=== PATIENT | female | born 1980 | race Caucasian/White ===

== ENCOUNTER 2018-08-18 19:16 | Emergency (ER) | payer OTHER ==
[~2018-08-18] VITALS: Ht 152.4 cm; Wt 68.0 kg
[~2018-08-18 19:16] MED LIST: BROMFED DM COU118 ML PO; FLOVENT HFA12 G1 INH; OMEPRAZOLE40 MG PO; PROAIR HFA INH8.5 GM INH; ZYRTEC10 M3 PO
== END 2018-08-18 21:30 | disposition home or self-care (01) ==
LOC: FSED 19:16
DX: R50.9 Fever, unspecified (principal); R05 Cough; J11.1 Influenza due to unidentified influenza virus with other respiratory manifestations
CPT/HCPCS: 87400; 99282

== ENCOUNTER 2019-10-01 09:10 | Emergency (ER) | payer OTHER ==
[~2019-10-01] VITALS: Ht 152.4 cm; Wt 59.0 kg
--- OUTSIDE RECORDS SUMMARY | 2019-10-01 09:13 | XMS REPORT ---
Author Author [facility] Address Unknown Phone Unavailable Care Team Providers Care Animal Shelter Clerk Name Role Phone Unavailable Unavailable Payers Payer Name Policy Type Policy Number Effective Date Expiration Date Problems This patient has no known problems. Allergies, Adverse Reactions, Alerts Allergy Name Allergy Type Status Severity Reaction(s) Onset Date Inactive Date Treating Clinician Comments Sulfa (Sulfonamide Antibiotics) DA Active U 2015-09-23 00:00:00 Medications This patient has no known medications. Results Test Description Test Time Test Comments Text Results Atomic Results Result Comments - CT ABD PELVIS W/CONT 2019-06-15 10:48:00 Name: RANI VALIENTE [facility] : 1980 Age/S: 39 / F [address] [facility] Unit #: [id number] Loc: [place] [address] Phys: Jann Esparza DO Acct: [id number] Dis Date: Status: REG ER PHONE #: [phone] Exam Date: 06/15/2019 1015 FAX #: [phone] Reason: RUQ pain post op EXAMS: CPT CODE: [id number] CT ABD PELVIS W/CONT 63984 REASON FOR EXAM: RUQ pain post op EXAM ORDER DATE: 06/15/2019 8:55 AM Ordering Summer: Jann Esparza DO PROCEDURE: - CT ABD PELVIS W/CONT contrast-enhanced axial CT images were acquired through the abdomen/pelvis at 5 mm intervals. Sagittal and coronal reformatted images were generated. Automated exposure control was utilized for this reduction. Phases of contrast: venous and delayed COMPARISON: None FINDINGS: Visualized thorax: Normal Hepatobiliary system: Prior cholecystectomy. Hepatic steatosis. Mild dilation of the common bile duct may be a physiologic response to the patient's prior cholecystectomy Pancreas: Normal Spleen: Normal Adrenal glands: Normal Genitourinary system: Corpus luteal cyst in the left ovary. Otherwise normal Gastrointestinal tract and appendix: Normal Abdominal vascular structures: Normal Peritoneum and retroperitoneum: No free fluid or free air. No omental or mesenteric masses. No abnormal lymph nodes. Musculoskeletal structures and abdominal wall: Normal IMPRESSION: There is been a prior cholecystectomy but there are no fluid collections or inflammatory changes in the surgical bed. Mild dilation of the common bile duct up to 6 mm likely represents a PAGE 1 Signed Report (CONTINUED) Name: RANI VALIENTE [facility] : 1980 Age/S: 39 / F [address] [facility] Unit #: [id number] Loc: [place] [address] Phys: Jann Esparza DO Acct: [id number] Dis Date: Status: REG ER PHONE #: [phone] Exam Date: 06/15/2019 1015 FAX #: [phone] Reason: RUQ pain post op EXAMS: CPT CODE: [id number] CT ABD PELVIS W/CONT 23299 <Continued> physiologic response to the patient's cholecystectomy. Hepatic steatosis. Corpus luteal cyst in the left ovary. at 1048 Reported and signed by: Sincere Soliz MD CC: Dr. Amauri Hampton; Jann Esparza DO Technologist:RT Racquel(R),CT CTDI: DLP: Trnscb Date/Time: 06/15/2019 (1048) [email or web address] Orig Print D/T: S: 06/15/2019 (1059) PAGE 2 Signed Report BASIC METABOLIC PANEL 2019-06-15 09:51:00 SODIUM (test code=NA) 141 mmol/L 136-145 POTASSIUM (test code=K) 3.8 mmol/L 3.5-5.1 CHLORIDE (test code=CL) 107.0 mmol/L 98-107 CARBON DIOXIDE (test code=CO2) 26.0 mmol/L 21-32 ANION GAP (test code=GAP) 11.8 10-20 GLUCOSE (test code=GLU) 96 mg/dL 74-106 BLOOD UREA NITROGEN (test code=BUN) 13 mg/dL 7-18 GLOMERULAR FILTRATION RATE (test code=GFR) > 60 mL/min >=60 Estimated GFR by using Modified MDRD formula.Chronic kidney disease is defined as either kidney damageor GFR <60 mL/min/1.73 m2 for >3 months. CREATININE (test code=CREAT) 0.90 mg/dL 0.55-1.02 Note change in reference range due to change in reagent. BUN/CREATININE RATIO (test code=BUN/CREA) 14.9 10-20 CALCIUM (test code=CA) 9.1 mg/dL 8.5-10.1 HEPATIC FUNCTION [id number] 09:51:00* Test Item Value Reference Range Comments TOTAL PROTEIN (test code=PROT) 7.8 gram/dL 6.4-8.2 ALBUMIN (test code=ALB) 4.0 g/dL 3.4-5.0 GLOBULIN (test code=GLOB) 3.8 gram/dL 2.7-4.2 ALBUMIN/GLOBULIN RATIO (test code=A/G) 1.1 0.75-1.50 BILIRUBIN TOTAL (test code=BILT) 0.20 mg/dL 0.0-1.0 BILIRUBIN DIRECT (test code=BILD) 0.05 mg/dL 0.0-0.20 SGOT/AST (test code=AST) 13 IUnit/L 15-37 SGPT/ALT (test code=ALT) 21 IUnit/L 12-78 ALKALINE PHOSPHATASE TOTAL (test code=ALKP) 61 IUnit/L 45-117 Note change in reference range due to change in reagent. [id number] 09:51:00* Test Item Value Reference Range Comments LIPASE (test code=LIP) 135 U/L 73.0-393.0 HCG SERUM [id number] 09:51:00* Test Item Value Reference Range Comments HCG SERUM QUAL (test code=HCGQL) NEGATIVE NEGATIVE This HCGQL test is NOT applicable for MALE patients.Check with nurse about probable order error.If Tumor Marker Test needed, nurse should order test "HCGTU"(Test #550.06285) BASIC METABOLIC [id number] 09:37:00* Test Item Value Reference Range Comments SODIUM (test code=NA) 141 mmol/L 136-145 POTASSIUM (test code=K) 3.8 mmol/L 3.5-5.1 CHLORIDE (test code=CL) 107.0 mmol/L 98-107 CARBON DIOXIDE (test code=CO2) mmol/L 21-32 ANION GAP (test code=GAP) 10-20 GLUCOSE (test code=GLU) mg/dL 74-106 BLOOD UREA NITROGEN (test code=BUN) mg/dL 7-18 GLOMERULAR FILTRATION RATE (test code=GFR) mL/min >=60 CREATININE (test code=CREAT) mg/dL 0.55-1.02 BUN/CREATININE RATIO (test code=BUN/CREA) 10-20 CALCIUM (test code=CA) mg/dL 8.5-10.1 HEPATIC FUNCTION [id number] 09:37:00* Test Item Value Reference Range Comments TOTAL PROTEIN (test code=PROT) gram/dL 6.4-8.2 ALBUMIN (test code=ALB) g/dL 3.4-5.0 GLOBULIN (test code=GLOB) gram/dL 2.7-4.2 ALBUMIN/GLOBULIN RATIO (test code=A/G) 0.75-1.50 BILIRUBIN TOTAL (test code=BILT) mg/dL 0.0-1.0 BILIRUBIN DIRECT (test code=BILD) mg/dL 0.0-0.20 SGOT/AST (test code=AST) IUnit/L 15-37 SGPT/ALT (test code=ALT) IUnit/L 12-78 ALKALINE PHOSPHATASE TOTAL (test code=ALKP) IUnit/L 45-117 [id number] 09:37:00* Test Item Value Reference Range Comments LIPASE (test code=LIP) U/L 73.0-393.0 HCG SERUM [id number] 09:37:00* Test Item Value Reference Range Comments HCG SERUM QUAL (test code=HCGQL) NEGATIVE NEGATIVE This HCGQL test is NOT applicable for MALE patients.Check with nurse about probable order error.If Tumor Marker Test needed, nurse should order test "HCGTU"(Test #550.99531) CBC W/O [id number] 09:32:00* Test Item Value Reference Range Comments WHITE BLOOD CELL (test code=WBC) 7.7 K/mm3 4.5-12.5 RED BLOOD CELL (test code=RBC) 4.47 mill/mm3 3.7-5.2 HEMOGLOBIN (test code=HGB) 13.2 gram/dL 11.5-15.5 HEMATOCRIT (test code=HCT) 40.7 % 36.0-46.0 MEAN CELL VOLUME (test code=MCV) 91.1 fL 80-98 MEAN CELL HGB (test code=MCH) 29.5 picogram 27.0-33.0 MEAN CELL HGB CONCETRATION (test code=MCHC) 32.4 gram/dL 33.0-36.0 RED CELL DISTRIBUTION WIDTH (test code=RDW) 14.9 % 11.6-16.2 PLATELET COUNT (test code=PLT) 351 K/mm3 150-450 MEAN PLATELET VOLUME (test code=MPV) 10.2 fL 6.7-11.0 BASIC METABOLIC [id number] 09:32:00* Test Item Value Reference Range Comments SODIUM (test code=NA) 141 mmol/L 136-145 POTASSIUM (test code=K) 3.8 mmol/L 3.5-5.1 CHLORIDE (test code=CL) 107.0 mmol/L 98-107 CARBON DIOXIDE (test code=CO2) mmol/L 21-32 ANION GAP (test code=GAP) 10-20 GLUCOSE (test code=GLU) mg/dL 74-106 BLOOD UREA NITROGEN (test code=BUN) mg/dL 7-18 GLOMERULAR FILTRATION RATE (test code=GFR) mL/min >=60 CREATININE (test code=CREAT) mg/dL 0.55-1.02 BUN/CREATININE RATIO (test code=BUN/CREA) 10-20 CALCIUM (test code=CA) mg/dL 8.5-10.1 HEPATIC FUNCTION [id number] 09:32:00* Test Item Value Reference Range Comments TOTAL PROTEIN (test code=PROT) gram/dL 6.4-8.2 ALBUMIN (test code=ALB) g/dL 3.4-5.0 GLOBULIN (test code=GLOB) gram/dL 2.7-4.2 ALBUMIN/GLOBULIN RATIO (test code=A/G) 0.75-1.50 BILIRUBIN TOTAL (test code=BILT) mg/dL 0.0-1.0 BILIRUBIN DIRECT (test code=BILD) mg/dL 0.0-0.20 SGOT/AST (test code=AST) IUnit/L 15-37 SGPT/ALT (test code=ALT) IUnit/L 12-78 ALKALINE PHOSPHATASE TOTAL (test code=ALKP) IUnit/L 45-117 [id number] 09:32:00* Test Item Value Reference Range Comments LIPASE (test code=LIP) U/L 73.0-393.0 HCG SERUM [id number] 09:32:00* Test Item Value Reference Range Comments HCG SERUM QUAL (test code=HCGQL) NEGATIVE CBC W/O [id number] 09:30:00* Test Item Value Reference Range Comments WHITE BLOOD CELL (test code=WBC) K/mm3 4.5-12.5 RED BLOOD CELL (test code=RBC) mill/mm3 3.7-5.2 HEMOGLOBIN (test code=HGB) 13.2 gram/dL 11.5-15.5 HEMATOCRIT (test code=HCT) 40.7 % 36.0-46.0 MEAN CELL VOLUME (test code=MCV) fL 80-98 MEAN CELL HGB (test code=MCH) picogram 27.0-33.0 MEAN CELL HGB CONCETRATION (test code=MCHC) gram/dL 33.0-36.0 RED CELL DISTRIBUTION WIDTH (test code=RDW) % 11.6-16.2 PLATELET COUNT (test code=PLT) K/mm3 150-450 MEAN PLATELET VOLUME (test code=MPV) fL 6.7-11.0 URINALYSIS [id number] 09:26:00* Test Item Value Reference Range Comments UA COLOR (test code=COLU) Light-Yellow YELLOW UA APPEARANCE (test code=APPU) CLEAR CLEAR UA GLUCOSE DIPSTICK (test code=DGLUU) NEGATIVE mg/dL NEGATIVE UA BILIRUBIN DIPSTICK (test code=BILU) NEGATIVE mg/dL NEGATIVE UA KETONE DIPSTICK (test code=KETU) NEGATIVE mg/dL NEGATIVE UA SPECIFIC GRAVITY (test code=SGU) 1.016 1.001-1.035 UA BLOOD DIPSTICK (test code=NIA) Negative mg/dL NEGATIVE UA PH DIPSTICK (test code=JOSE FRANCISCO) 6.5 5.0-8.0 UA PROTEIN DIPSTICK (test code=PROU) NEGATIVE mg/dL NEGATIVE UA UROBILINIOGEN DIPSTICK (test code=URO) Normal mg/dL NEGATIVE UA NITRITE DIPSTICK (test code=MICHAEL) NEGATIVE NEGATIVE UA LEUKOCYTE ESTERASE W REFLEX (test code=LEUUR) NEGATIVE Eml/uL NEGATIVE UA WBC (test code=WBCU) 0-5 per HPF 0-5 UA RBC (test code=RBCU) 0-2 #/HPF 0-5 UA EPITHELIAL CELLS (test code=EPIU) FEW per HPF FEW UA BACTERIA (test code=BACU) FEW #/HPF NONE UA MUCUS (test code=MUCU) FEW #/LPF FEW Urine Source? Clean CatchURINALYSIS [id number] 09:17:00* Test Item Value Reference Range Comments UA COLOR (test code=COLU) Light-Yellow YELLOW UA APPEARANCE (test code=APPU) CLEAR CLEAR UA GLUCOSE DIPSTICK (test code=DGLUU) NEGATIVE mg/dL NEGATIVE UA BILIRUBIN DIPSTICK (test code=BILU) NEGATIVE mg/dL NEGATIVE UA KETONE DIPSTICK (test code=KETU) NEGATIVE mg/dL NEGATIVE UA SPECIFIC GRAVITY (test code=SGU) 1.016 1.001-1.035 UA BLOOD DIPSTICK (test code=NIA) Negative mg/dL NEGATIVE UA PH DIPSTICK (test code=JOSE FRANCISCO) 6.5 5.0-8.0 UA PROTEIN DIPSTICK (test code=PROU) NEGATIVE mg/dL NEGATIVE UA UROBILINIOGEN DIPSTICK (test code=URO) Normal mg/dL NEGATIVE UA NITRITE DIPSTICK (test code=MICHAEL) NEGATIVE NEGATIVE UA LEUKOCYTE ESTERASE W REFLEX (test code=LEUUR) NEGATIVE Mel/uL NEGATIVE UA WBC (test code=WBCU) per HPF 0-5 UA RBC (test code=RBCU) per HPF 0-5 UA EPITHELIAL CELLS (test code=EPIU) per HPF Few UA BACTERIA (test code=BACU) per HPF NONE Urine Source? Clean CatchBASIC METABOLIC [id number] 10:02:00* Test Item Value Reference Range Comments SODIUM (test code=NA) 138 mmol/L 136-145 POTASSIUM (test code=K) 3.4 mmol/L 3.5-5.1 CHLORIDE (test code=CL) 103.0 mmol/L 98-107 CARBON DIOXIDE (test code=CO2) 28.0 mmol/L 21-32 ANION GAP (test code=GAP) 10.4 10-20 GLUCOSE (test code=GLU) 91 mg/dL 74-106 BLOOD UREA NITROGEN (test code=BUN) 15 mg/dL 7-18 GLOMERULAR FILTRATION RATE (test code=GFR) > 60 mL/min >=60 Estimated GFR by using Modified MDRD formula.Chronic kidney disease is defined as either kidney damageor GFR <60 mL/min/1.73 m2 for >3 months. CREATININE (test code=CREAT) 0.90 mg/dL 0.55-1.02 Note change in reference range due to change in reagent. BUN/CREATININE RATIO (test code=BUN/CREA) 16.0 10-20 CALCIUM (test code=CA) 9.4 mg/dL 8.5-10.1 HEPATIC FUNCTION [id number] 10:02:00* Test Item Value Reference Range Comments TOTAL PROTEIN (test code=PROT) 7.9 gram/dL 6.4-8.2 ALBUMIN (test code=ALB) 4.1 g/dL 3.4-5.0 GLOBULIN (test code=GLOB) 3.8 gram/dL 2.7-4.2 ALBUMIN/GLOBULIN RATIO (test code=A/G) 1.1 0.75-1.50 BILIRUBIN TOTAL (test code=BILT) 0.40 mg/dL 0.0-1.0 BILIRUBIN DIRECT (test code=BILD) 0.11 mg/dL 0.0-0.20 SGOT/AST (test code=AST) 18 IUnit/L 15-37 SGPT/ALT (test code=ALT) 33 IUnit/L 12-78 ALKALINE PHOSPHATASE TOTAL (test code=ALKP) 66 IUnit/L 45-117 Note change in reference range due to change in reagent. [id number] 10:02:00* Test Item Value Reference Range Comments LIPASE (test code=LIP) 190 U/L 73.0-393.0 HCG SERUM [id number] 10:02:00* Test Item Value Reference Range Comments HCG SERUM QUAL (test code=HCGQL) NEGATIVE NEGATIVE This HCGQL test is NOT applicable for MALE patients.Check with nurse about probable order error.If Tumor Marker Test needed, nurse should order test "HCGTU"(Test #550.25619) [id number] 10:02:00* Test Item Value Reference Range Comments TROPONIN-I (test code=TROPI) <0.015 ng/mL 0-0.045 BASIC METABOLIC [id number] 09:46:00* Test Item Value Reference Range Comments SODIUM (test code=NA) 138 mmol/L 136-145 POTASSIUM (test code=K) 3.4 mmol/L 3.5-5.1 CHLORIDE (test code=CL) 103.0 mmol/L 98-107 CARBON DIOXIDE (test code=CO2) mmol/L 21-32 ANION GAP (test code=GAP) 10-20 GLUCOSE (test code=GLU) mg/dL 74-106 BLOOD UREA NITROGEN (test code=BUN) mg/dL 7-18 GLOMERULAR FILTRATION RATE (test code=GFR) mL/min >=60 CREATININE (test code=CREAT) mg/dL 0.55-1.02 BUN/CREATININE RATIO (test code=BUN/CREA) 10-20 CALCIUM (test code=CA) mg/dL 8.5-10.1 HEPATIC FUNCTION [id number] 09:46:00* Test Item Value Reference Range Comments TOTAL PROTEIN (test code=PROT) gram/dL 6.4-8.2 ALBUMIN (test code=ALB) g/dL 3.4-5.0 GLOBULIN (test code=GLOB) gram/dL 2.7-4.2 ALBUMIN/GLOBULIN RATIO (test code=A/G) 0.75-1.50 BILIRUBIN TOTAL (test code=BILT) mg/dL 0.0-1.0 BILIRUBIN DIRECT (test code=BILD) mg/dL 0.0-0.20 SGOT/AST (test code=AST) IUnit/L 15-37 SGPT/ALT (test code=ALT) IUnit/L 12-78 ALKALINE PHOSPHATASE TOTAL (test code=ALKP) IUnit/L 45-117 [id number] 09:46:00* Test Item Value Reference Range Comments LIPASE (test code=LIP) U/L 73.0-393.0 HCG SERUM [id number] 09:46:00* Test Item Value Reference Range Comments HCG SERUM QUAL (test code=HCGQL) NEGATIVE NEGATIVE This HCGQL test is NOT applicable for MALE patients.Check with nurse about probable order error.If Tumor Marker Test needed, nurse should order test "HCGTU"(Test #550.93999) [id number] 09:46:00* Test Item Value Reference Range Comments TROPONIN-I (test code=TROPI) ng/mL 0-0.045 BASIC METABOLIC [id number] 09:45:00* Test Item Value Reference Range Comments SODIUM (test code=NA) 138 mmol/L 136-145 POTASSIUM (test code=K) 3.4 mmol/L 3.5-5.1 CHLORIDE (test code=CL) 103.0 mmol/L 98-107 CARBON DIOXIDE (test code=CO2) mmol/L 21-32 ANION GAP (test code=GAP) 10-20 GLUCOSE (test code=GLU) mg/dL 74-106 BLOOD UREA NITROGEN (test code=BUN) mg/dL 7-18 GLOMERULAR FILTRATION RATE (test code=GFR) mL/min >=60 CREATININE (test code=CREAT) mg/dL 0.55-1.02 BUN/CREATININE RATIO (test code=BUN/CREA) 10-20 CALCIUM (test code=CA) mg/dL 8.5-10.1 HEPATIC FUNCTION [id number] 09:45:00* Test Item Value Reference Range Comments TOTAL PROTEIN (test code=PROT) gram/dL 6.4-8.2 ALBUMIN (test code=ALB) g/dL 3.4-5.0 GLOBULIN (test code=GLOB) gram/dL 2.7-4.2 ALBUMIN/GLOBULIN RATIO (test code=A/G) 0.75-1.50 BILIRUBIN TOTAL (test code=BILT) mg/dL 0.0-1.0 BILIRUBIN DIRECT (test code=BILD) mg/dL 0.0-0.20 SGOT/AST (test code=AST) IUnit/L 15-37 SGPT/ALT (test code=ALT) IUnit/L 12-78 ALKALINE PHOSPHATASE TOTAL (test code=ALKP) IUnit/L 45-117 [id number] 09:45:00* Test Item Value Reference Range Comments LIPASE (test code=LIP) U/L 73.0-393.0 HCG SERUM [id number] 09:45:00* Test Item Value Reference Range Comments HCG SERUM QUAL (test code=HCGQL) NEGATIVE [id number] 09:45:00* Test Item Value Reference Range Comments TROPONIN-I (test code=TROPI) ng/mL 0-0.045 CBC W/O [id number] 09:29:00* Test Item Value Reference Range Comments WHITE BLOOD CELL (test code=WBC) 7.3 K/mm3 4.5-12.5 RED BLOOD CELL (test code=RBC) 4.71 mill/mm3 3.7-5.2 HEMOGLOBIN (test code=HGB) 14.3 gram/dL 11.5-15.5 HEMATOCRIT (test code=HCT) 42.7 % 36.0-46.0 MEAN CELL VOLUME (test code=MCV) 90.7 fL 80-98 MEAN CELL HGB (test code=MCH) 30.4 picogram 27.0-33.0 MEAN CELL HGB CONCETRATION (test code=MCHC) 33.5 gram/dL 33.0-36.0 RED CELL DISTRIBUTION WIDTH (test code=RDW) 13.3 % 11.6-16.2 PLATELET COUNT (test code=PLT) 341 K/mm3 150-450 MEAN PLATELET VOLUME (test code=MPV) 10.7 fL 6.7-11.0 URINALYSIS [id number] 09:27:00* Test Item Value Reference Range Comments UA COLOR (test code=COLU) LIGHT YELLOW YELLOW UA APPEARANCE (test code=APPU) CLEAR CLEAR UA GLUCOSE DIPSTICK (test code=DGLUU) NEGATIVE mg/dL NEGATIVE UA BILIRUBIN DIPSTICK (test code=BILU) NEGATIVE NEGATIVE UA KETONE DIPSTICK (test code=KETU) NEGATIVE mg/dL NEGATIVE UA SPECIFIC GRAVITY (test code=SGU) <=1.005 1.001-1.035 UA BLOOD DIPSTICK (test code=NIA) NEGATIVE NEGATIVE UA PH DIPSTICK (test code=JOSE FRANCISCO) 7.0 5.0-8.0 UA PROTEIN DIPSTICK (test code=PROU) NEGATIVE mg/dL Neg-15 UA UROBILINIOGEN DIPSTICK (test code=URO) 0.2 mg/dL 0.0-0.2 UA NITRITE DIPSTICK (test code=MICHAEL) NEGATIVE NEGATIVE UA LEUKOCYTE ESTERASE W REFLEX (test code=LEUUR) NEGATIVE NEGATIVE UA WBC (test code=WBCU) 0-5 per HPF 0-5 UA RBC (test code=RBCU) 0-2 #/HPF 0-5 UA EPITHELIAL CELLS (test code=EPIU) FEW per HPF FEW UA BACTERIA (test code=BACU) FEW #/HPF NONE Urine Source? Clean CatchURINALYSIS [id number] 09:25:00* Test Item Value Reference Range Comments UA COLOR (test code=COLU) LIGHT YELLOW YELLOW UA APPEARANCE (test code=APPU) CLEAR CLEAR UA GLUCOSE DIPSTICK (test code=DGLUU) NEGATIVE mg/dL NEGATIVE UA BILIRUBIN DIPSTICK (test code=BILU) NEGATIVE NEGATIVE UA KETONE DIPSTICK (test code=KETU) NEGATIVE mg/dL NEGATIVE UA SPECIFIC GRAVITY (test code=SGU) <=1.005 1.001-1.035 UA BLOOD DIPSTICK (test code=NIA) NEGATIVE NEGATIVE UA PH DIPSTICK (test code=JOSE FRANCISCO) 7.0 5.0-8.0 UA PROTEIN DIPSTICK (test code=PROU) NEGATIVE mg/dL Neg-15 UA UROBILINIOGEN DIPSTICK (test code=URO) 0.2 mg/dL 0.0-0.2 UA NITRITE DIPSTICK (test code=MICHAEL) NEGATIVE NEGATIVE UA LEUKOCYTE ESTERASE W REFLEX (test code=LEUUR) NEGATIVE NEGATIVE UA WBC (test code=WBCU) per HPF 0-5 UA RBC (test code=RBCU) per HPF 0-5 UA EPITHELIAL CELLS (test code=EPIU) per HPF Few UA BACTERIA (test code=BACU) per HPF NONE Urine Source? Clean Catch
--- NOTE | 2019-10-01 09:53 | Diagnostic Imaging Report ---
EXAM: CT Abdomen and Pelvis WITHOUT intravenous contrast INDICATION: Flank pain COMPARISON: CT abdomen pelvis of 06/20/2016 TECHNIQUE: Abdomen and pelvis were scanned utilizing a multidetector helical scanner from the lung base to the pubic symphysis without administration of IV contrast. Coronal and sagittal reformations were obtained. IV CONTRAST: None ORAL CONTRAST: Water COMPLICATIONS: None RADIATION DOSE: Total DLP: 411.7 mGy*cm Dose modulation, iterative reconstruction, and/or weight based adjustment of the mA/kV was utilized to reduce the radiation dose to as low as reasonably achievable. FINDINGS: LOWER THORAX: Normal. HEPATOBILIARY: No focal liver lesion. Status post cholecystectomy. SPLEEN: No splenomegaly. PANCREAS: No focal masses or ductal dilatation. ADRENALS: No adrenal nodules. KIDNEYS/URETERS: No hydronephrosis, stones, or solid mass lesions. PELVIC ORGANS/BLADDER: Unremarkable. PERITONEUM / RETROPERITONEUM: No free air or fluid. LYMPH NODES: No lymphadenopathy. VESSELS: Unremarkable. GI TRACT: No abnormal bowel thickening. No bowel obstruction. Normal appendix. BONES AND SOFT TISSUES: No acute fracture or dislocation. No suspicious lytic or blastic lesions. IMPRESSION: No acute findings in the abdomen or pelvis. Specifically, no renal calculi or hydronephrosis. Signed by: Federico Buchanan MD on 10/01/2019 9:51 AM
[2019-10-01] MEDS ORDERED: KETOROLAC TROMETHAMINE 30 MG/ML VIAL IV STA (10:20)
[2019-10-01] MEDS ORDERED: ONDANSETRON HCL INJ 2MG/ML 2ML 2 MG/ML VIAL IV STA (10:20)
[2019-10-01 11:06] VITALS: BP 127/69
== END 2019-10-01 11:14 | disposition home or self-care (01) ==
LOC: FSED 09:10
DX: R10.31 Right lower quadrant pain (principal); M54.5 Low back pain; R11.0 Nausea; F17.210 Nicotine dependence, cigarettes, uncomplicated
CPT/HCPCS: 74176; 99284; J1885; J2405